=== PATIENT | male | born 1980 | race Hispanic/Latino ===

== ENCOUNTER 2022-12-16 02:59 | Emergency (ER) | payer SELFPAY ==
--- NOTE | 2022-12-16 03:11 | ED_ITS ---
HPI - General Adult General Chief complaint: Abdominal Pain Stated complaint: abd pain Time Seen by Provider: 12/16/22 03:05 Source: patient Mode of arrival: Ambulatory Limitations: no limitations History of Present Illness HPI narrative: Patient is a 42-year-old male here for evaluation of a fairly sudden onset of right-sided lower back and lower abdominal discomfort. He states he has had a kidney stone in the past in the left side and this feels somewhat different from that. It does radiate down to his groin. He is not having any urinary symptoms. No fevers. No specific trauma. No change in bowel habits. Has not tried anything for symptoms prior to arrival. Related Data Previous Rx's Medication Instructions Recorded hydrocodone 5 mg-acetaminophen 325 1 tab PO Q4-6H PRN pain #10 tabs 12/16/22 mg tablet ondansetron 4 mg disintegrating 4 mg PO Q6H PRN nausea and 12/16/22 tablet vomiting #10 tabs Allergies Allergy/AdvReac Type Severity Reaction Status Date / Time No Known Drug Allergies Allergy Verified 12/16/22 03:13 Review of Systems Gastrointestinal Gastrointestinal: Reports system reviewed and no additional complaints, except as documented Genitourinary Genitourinary: Reports system reviewed and no additional complaints, except as documented Integumentary/Breasts Skin/Breast: Reports system reviewed and no additional complaints, except as documented Patient History Social History Smoking Status: Current every day smoker Exam Initial Vital Signs Initial Vital Signs: Vital Signs Temperature 96.5 F L 12/16/22 03:13 Pulse Rate 65 12/16/22 03:13 Respiratory Rate 17 12/16/22 03:13 Blood Pressure 134/80 12/16/22 03:13 Pulse Oximetry 95 12/16/22 03:13 Oxygen Delivery Method Room Air 12/16/22 03:13 HENMT Head: normal to inspection and normocephalic Resp Effort & Inspection: normal respiratory effort Cardio Rate: regular rate GI Inspection: normal to inspection and non-distended Back/Spine/Pelvis Back: No CVA tenderness Skin General: no rashes or lesions noted Neuro General: patient alert, patient awake and moves all extremities Course Orders Ordered: ED Orders 12/16/22 03:11 Urine Microscopic Stat 12/16/22 03:15 CT kidney ureter bladder (KUB) Stat 12/16/22 03:30 Basic Metabolic Panel Stat Complete Blood Count AUTO DIFF Stat Discontinued Medications Hydrocodone Bitart/Acetaminophen (Hydrocodone/Acet 5/325 Prepack) 1 bottle MISC SEEINSTR ONE Stop: 12/16/22 07:16 Hydromorphone HCl (Hydromorphone 1 Mg Inj) 1 mg IV NOW ONE Stop: 12/16/22 03:50 Last Admin: 12/16/22 03:54 Dose: 1 mg Documented By: WILLIAM Hydromorphone HCl (Hydromorphone 1 Mg Inj) 1 mg IV NOW ONE Stop: 12/16/22 05:44 Last Admin: 12/16/22 05:47 Dose: 1 mg Documented By: RENE Lidocaine HCl 8 ml/ Sodium (Chloride) 58 mls @ 348 mls/hr IV NOW ONE Stop: 12/16/22 05:08 Last Infusion: 12/16/22 05:32 Dose: 0 mls/hr Documented By: Admin: 12/16/22 05:18 Dose: 348 mls/hr Documented By: WILLIAM Ketorolac Tromethamine (Ketorolac 30 Mg/Ml Vial) 30 mg IV NOW ONE Stop: 12/16/22 03:15 Last Admin: 12/16/22 03:37 Dose: 30 mg Documented By: WILLIAM Ondansetron HCl (Ondansetron 4 Mg/2 Ml Inj) 4 mg IV NOW ONE Stop: 12/16/22 03:15 Last Admin: 12/16/22 03:38 Dose: 4 mg Documented By: WILLIAM Ondansetron HCl (Ondansetron 4 Mg/2 Ml Inj) 4 mg IV NOW ONE Stop: 12/16/22 06:26 Last Admin: 12/16/22 06:33 Dose: 4 mg Documented By: WILLIAM Ondansetron HCl (Ondansetron 4 Mg Odt Prepack) 1 bottle MISC SEEINSTR ONE Stop: 12/16/22 07:16 Vital Signs Vital signs: Vital Signs - 8 hr 12/16/22 03:13 12/16/22 03:20 12/16/22 06:35 Temperature 96.5 F L Pulse Rate 65 57 L Respiratory Rate 17 Blood Pressure 134/80 Pulse Oximetry 95 96 91 Oxygen Delivery Method Room Air 12/16/22 06:36 12/16/22 06:36 Temperature Pulse Rate 55 L Respiratory Rate Blood Pressure 120/83 Pulse Oximetry 97 Oxygen Delivery Method Room Air Medical Decision Making Lab Data Lab results reviewed: Yes I reviewed the patient's lab results. 12/16/22 03:30 12/16/22 03:30 Labs: Lab Results 12/16/22 12/16/22 12/16/22 Range/Units 03:11 03:30 03:30 WBC 11.8 H (4.5-11.0) X10^3/uL RBC 4.56 (4.5-5.9) X10^6/uL Hgb 13.2 L (13.5-17.5) g/dL Hct 39.8 L (41-53) % MCV 87.4 (80-100) fL MCH 29.1 (26-34) PG MCHC 33.3 (30-36) % RDW 13.5 (11.6-14.8) % Plt Count 317 (150-400) X10^3/uL Neut % (Auto) 70.6 (50-75) % Lymph % (Auto) 22.0 L (25-40) % [place] % (Auto) 6.0 (3-14) % Eos % (Auto) 0.8 L (2-4) % Baso % (Auto) 0.6 (0-2) % Neut # (Auto) 8400 H (5669-1721) /uL Lymph # (Auto) 2600 (8697-7371) /uL [place] # (Auto) 700 (0-900) /uL Eos # (Auto) 100 (0-450) /uL Baso # (Auto) 100 (0-100) /uL Sodium 137 (137-145) mmol/L Potassium 3.7 (3.4-5.1) mmol/L Chloride 102 (98-107) mmol/L Carbon Dioxide 25 (22-32) mmol/L BUN 16 (9-20) mg/dL Creatinine 0.90 (0.66-1.25) mg/dL Estimated GFR > 60 (>60) mL/min BUN/Creatinine Ratio 17.8 (6-22) Glucose 186 H (70-100) mg/dL Calcium 8.7 (8.4-10.2) mg/dL Urine RBC 1-5/hpf (0-5/HPF) Urine WBC None seen (0-5/HPF) Urine Bacteria None seen (None) Ur Culture Indicated? Cult not indicated Urine Dip Bedside Urine Glucose Negative Bedside Urine Bilirubin - Negative Bedside Urine Ketone - Negative Urine Specific [place] 1.025 Bedside Urine Occult Blood ++ Bedside Urine pH 6.0 Bedside Urine Protein - Negative Bedside Urine Urobilinogen - Negative Bedside Urine Nitrite - Negative Bedside Urine Leukocytes - Negative Esterase Point of care testing: Urine Dip Bedside Urine Glucose Negative Bedside Urine Bilirubin - Negative Bedside Urine Ketone - Negative Urine Specific [place] 1.025 Bedside Urine Occult Blood ++ Bedside Urine pH 6.0 Bedside Urine Protein - Negative Bedside Urine Urobilinogen - Negative Bedside Urine Nitrite - Negative Bedside Urine Leukocytes - Negative Esterase Imaging Data CT scan - abdomen/pelvis: Radiologist's Impression: Moderate right hydronephrosis and perinephric inflammatory changes with an obstructing 2 mm distal ureteral calculus MDM Narrative Medical decision making narrative: Kidney functions unremarkable. Urine shows no signs of infection. CT scan does show a distal right-sided 2 mm stone which is obviously the source of his symptoms today. Initially had quite a bit of difficulty controlling his symptom s to include pain and vomiting. We were eventually able to get him to a point where he was comfortable. Will discharge home with pain medication and nausea medicine. Will send home with symptom control as well. He was given return precautions and follow-up instructions. He expressed understanding and agreement. Discharge Plan Departure Patient Disposition: Home Clinical Impression: Kidney stones Instructions: Kidney Stones -- Adult Activity Restrictions/Additional Instructions: The CT scan today did show a right-sided kidney stone. It is of a size that you should pass on your own however these stones can be very uncomfortable into you do so. Take the nausea medication the pain medication as needed. Return to the emergency department for new symptoms to include pain that is not controlled by the medications, vomiting this not controlled by the medications, fevers or any other worsening symptoms. Prescriptions: New ondansetron 4 mg tablet,disintegrating 4 mg PO Q6H PRN (Reason: nausea and vomiting) Qty: 10 0RF hydrocodone-acetaminophen 5-325 mg tablet 1 tab PO Q4-6H PRN (Reason: pain) Qty: 10 0RF Stand Alone Forms: Patient Portal/API
[2022-12-16 03:13] VITALS: BP 134/80; PULSE 65; RESP 17; TEMP 35.8; O2SAT 95; BMI 34.7
--- NOTE | 2022-12-16 03:15 | DI.CT.S_ITS ---
PROCEDURE: CT KIDNEY URETER BLADDER (KUB) INDICATIONS: R flank pain eval for stone TECHNIQUE: Axial sections were acquired from the lung bases to the pubic symphysis. Coronal and sagittal reformats were performed. For radiation dose reduction, the following was used: automated exposure control, adjustment of mA and/or kV according to patient size. COMPARISON: None. FINDINGS: Image quality: Excellent. Lung bases: Unremarkable. Small hiatal hernia. Heart: No significant findings. URINARY: Right Kidney: Mild hydronephrosis and perinephric stranding. Punctate 1 mm calcifications consistent with nonobstructive stones. Right Ureter: There is a 2 mm stone at the UVJ. Mild hydroureter and periureteral stranding. Left Kidney: Punctate 1 mm calcifications suspicious for nonobstructive stones. No hydronephrosis. Left Ureter: No ureteral stones. No hydroureter. Bladder: Normal wall thickness. No stones. ABDOMEN: Liver: Normal size. Moderate hepatic steatosis2. Gallbladder: Unremarkable. Biliary ducts: Unremarkable. Pancreas: Unremarkable. Spleen: Unremarkable. Adrenal Glands: Unremarkable. Stomach and Bowel: Stomach, small bowel loops, and colon are normal in caliber. Mild diverticulosis without diverticulitis. Peritoneum: No abnormal intraperitoneal fluid. No free air. Ventral Wall: No hernia. Abdominal Nodes: No enlarged retroperitoneal or mesenteric lymph nodes. Vessels: Aorta and inferior vena cava are normal in size. PELVIS: Pelvic Organs: Unremarkable. Pelvic Nodes: Unremarkable. Miscellaneous: No inguinal hernias are seen. Bones: Unremarkable. IMPRESSION: 1. A 2 mm obstructive stone at the right UVJ causing mild hydronephrosis and and perinephric stranding. 2. Suspect tiny nonobstructive renal calculi bilaterally. 3. Hepatic steatosis. 4. Mild diverticulosis without diverticulitis. No significant discrepancy with the overnight houseperson radiology preliminary report. Dictated by: Leslie Marquez M.D. on 12/16/2022 at 6:57 Approved by: Leslie Marquez M.D. on 12/16/2022 at 8:50
[2022-12-16 03:20] VITALS: PULSE 57; O2SAT 96
[2022-12-16] MEDS: KETOROLAC 30 MG/ML VIAL IV (03:37)
[2022-12-16] MEDS: ONDANSETRON 4 MG/2 ML INJ IV ×2 (03:38→06:33)
[2022-12-16 03:44] LABS: Add Manual Diff / Slide Review NO; Basophils Absolute Auto 100 /uL (0-100); Basophils Percent Auto 0.6 % (0-2); Eosinophils Absolute Auto 100 /uL (0-450); Eosinophils Percent Auto 0.8 % (2-4); Hematocrit 39.8 % (41-53); Hemoglobin 13.2 g/dL (13.5-17.5); Lymphocytes Absolute Auto 2600 /uL (1100-4500); Mean Corpuscular HGB Conc 33.3 % (30-36); Mean Corpuscular Hemoglobin 29.1 PG (26-34); Mean Corpuscular Volume 87.4 fL (80-100); Monocytes Absolute Auto 700 /uL (0-900); Neutrophils Absolute Auto 8400 /uL (1500-7000); Neutrophils Percent Auto 70.6 % (50-75); Platelet Count 317 X10^3/uL (150-400); Red Blood Cell Count 4.56 X10^6/uL (4.5-5.9); Red Cell Distribution Width 13.5 % (11.6-14.8); White Blood Cell Count 11.8 X10^3/uL (4.5-11.0)
[2022-12-16 03:47] LABS: Bacteria Urine None Seen; Culture Indicated Urine Cult Not Indicated; RBC Urine 1-5/HPF (0-5/HPF); WBC Urine None Seen (0-5/HPF)
[2022-12-16] MEDS: HYDROMORPHONE 1 MG INJ IV ×2 (03:54→05:47)
[2022-12-16 03:59] LABS: BUN Creatinine Ratio 17.8 (6-22); Blood Urea Nitrogen 16 mg/dL (9-20); Calcium 8.7 mg/dL (8.4-10.2); Carbon Dioxide 25 mmol/L (22-32); Chloride 102 mmol/L (98-107); Estimated Glomerular Filt Rate > 60 mL/min (>60); Glucose 186 mg/dL (70-100); HEMOLYSIS 24 (0-50); Potassium 3.7 mmol/L (3.4-5.1); Sodium 137 mmol/L (137-145)
[2022-12-16] MEDS: LIDOCAINE 2% (PF) 8 ML in SODIUM CHLORIDE 0.9% 50 ML 348 ML IV (05:18)
[2022-12-16 06:35] VITALS: O2SAT 91
[2022-12-16 06:36] VITALS: BP 120/83; PULSE 55; O2SAT 97
[2022-12-16] MEDS: ONDANSETRON 4 MG ODT PREPACK 1 BOTTLE MISC (07:33)
[2022-12-16] MEDS: HYDROCODONE/ACET 5/325 PREPACK 1 BOTTLE MISC (07:34)
== END 2022-12-16 07:35 | disposition home or self-care (01) ==
PROVIDERS: Emergency Provider Emergency Medicine
DX: N20.0 Calculus of kidney (principal)
CPT/HCPCS: 36415; 74176; 80048; 81003; 81015; 85025; 96374; 96375; 96376; 99284; J1170; J1885; J2405